=== PATIENT | female | born 1940 | race Caucasian/White ===

== ENCOUNTER → 2016-08-08 | Outpatient (CLI) | payer MEDICARE ==
[~2016-08-08] MED LIST: LANTUS100 U/ML SUBQ; LEVAQUIN PO; LIPITOR PO; NOVOLOG100 U/ML SUBQ; SYNTHROID PO
[2016-08-10 10:44] LABS: MICROALB UR (PNL) 0.3 mg/dL (***)
== END | disposition home or self-care (01) ==
LOC: CLAB 09:42
PROVIDERS: Internal Medicine Endocrinology, Diabetes & Metabolism
DX: E10.40 Type 1 diabetes mellitus with diabetic neuropathy, unspecified (principal)
CPT/HCPCS: 36415; 82043; 82570; 83036